=== PATIENT | male | born 1945 | race Caucasian/White ===

== ENCOUNTER → 2017-04-12 | Outpatient (CLI) | payer MEDICARE, BC ==
--- NOTE | 2017-04-12 15:56 | CONS ---
Date/Time of Note Date/Time of Note DATE: 04/12/17 TIME: 15:41 Assessment/Plan Assessment/Plan Additional Assessment/Plan Assessment: This is a 71-year-old male who fell directly onto his right knee informed a prepatellar hematoma. There is no fracture or other degenerative changes on his x-rays. His examination is benign except for the pre-patellar hematoma. The skin is not being threatened and he has minimal symptoms therefore I am recommending not to aspirate the hematoma. Would expect this to improve over the course of the next several weeks he may continue to have some swelling for over a month or 2. Plan: Weight-bear as tolerated Ice and rest for 1 week May return to normal activities and gym after 1 week of rest. For activities using his knee or significant weightbearing activities at the gym he should slowly increase his activity to his baseline over a couple weeks and use pain as his guide. I would like to see him back in 6 weeks for follow-up. No x-rays needed. Consultation Date/Type/Reason Admit Date/Time Date of Consultation: Apr 12, 2017 Reason for Consultation Right knee pain Hx of Present Illness This is a 71 year-old male who presented to clinic with 2 weeks right knee pain after falling off the treadmill at the gym. At the time he was able to return to his regular routine at the gym. He later noticed that he had significant swelling over on the knee. He had minimal pain with ambulation and range of motion. He was only painful to touch over the patella. He describes the pain as dull. Currently his symptoms do not affect his activity level. He saw his PCP Dr. Coy who ordered an ultrasound. Ultrasound was consistent with a hematoma. Patient states the swelling is fairly stable and has not decreased. He denies fevers and chills. He denies numbness and tingling. Denies fevers, chills, shortness of breath, chest pain, numbness, tingling, diarrhea, constipation. Past Medical History Medical History: no pertinent history Past Surgical History No pertinent surgical history Family History Significant Family History: no pertinent family hx Social History The patient has never smoked. Patient consumes approximately 5 alcoholic drinks a week. Patient denies any illicit drug use. Exam/Review of Systems Vital Signs Vitals Weight: 160 pounds Height: 5 foot 10 inches Temperature: 97.9 Heart Rate: 72 Blood Pressure: 131/69 Respiratory Rate: 10 Exam General: Alert, oriented x3. No Acute Distress. Heart: Regular rate and rhythm. Lungs: No respiratory distress. No accessory muscle use. Musculoskeletal: Left Knee This is a well developed male who is alert, oriented times three and in no apparent distress. Skin is intact over the left knee as well as the lower extremity with no abrasions, lacerations, or ulcerations. There is a large fluid collection in the pre- patella bursa. There is no intra-articular knee effusion. There is no erythema , no warmth, minimally tender to palpation. Observation of the patient's gait reveals a non-antalgic gait with No thrust. Frontal plane alignment is neutral. There is no pain on palpation of the joint lines. The patient demonstrates grinding anteriorly with ROM. Range of motion: 0 extension to approximately 140 degrees of flexion. Collateral ligament testing reveals no instability with varus or valgus stress at 0 and 30 degrees of flexion. Negative Carlene's and negative posterior drawer. Neurovascularly intact with 5/5 EHL/tibialis anterior /gastroc. Sensation intact to light touch in a sural, saphenous, deep peroneal, superficial peroneal, medial and lateral plantar nerve distribution. Palpable, symmetric dorsalis pedis and posterior tibial pulses in both lower extremities. Hip examination normal. Imaging Free Text/Dictation The patient received a standard set of films today that were personally reviewed. Imaging included a standing bilateral knee AP, PA flexion, merchant views and a dedicated lateral of the affected knee: There is neutral alignment of the knee. There is no loss of joint space in the compartment(s). There is no osteophyte formation. There is no subchondral sclerosis. There are no subchondral cysts. No degenerative changes There is pre-patellar soft tissue swelling on the right knee MAZIN GONCALVES MD Apr 12, 2017 15:52
--- NOTE | 2017-04-13 13:56 | RADRPT ---
PROCEDURE: XR bilateral Knees. CLINICAL INDICATION: Bilateral knee pain. TECHNIQUE: 5 views of both knees are available for review. COMPARISON: None available FINDINGS: Right side: There is quadriceps insertional enthesopathy. No evidence for fracture. Medial and later al compartments and patellofemoral compartment are intact. There is a moderate joint effusion presen t. The moderate joint effusion can be seen with soft tissue injury such as meniscal tear and/or liga ment injury. Atherosclerotic changes are seen. Left side: No evidence for fracture. There is quadriceps insertional enthesopathy. There is a modera te joint effusion present. The moderate joint effusion can be seen with soft tissue injury such as m eniscal tear and/or ligament injury. Atherosclerotic changes are seen. IMPRESSION: 1. Bilateral moderate joint effusions which can be seen with synovitis and reflect soft tissue inj ury such as a meniscal tear and/or ligament injury. 2. No acute fracture or dislocation is seen. 3. Atherosclerosis. RPTAT: XX .Danilo Whitten MD, MD Date Time Electronically viewed and signed by .Danilo Whitten MD, on 04/13/2017 13:56 .T/
== END | disposition home or self-care (01) ==
LOC: HKI 13:53
PROVIDERS: ATTEND Orthopaedic Surgery Adult Reconstructive Orthopaedic Surgery
DX: S80.01XD Contusion of right knee, subsequent encounter (principal); W19.XXXD Unspecified fall, subsequent encounter
CPT/HCPCS: 73562; G0463

== ENCOUNTER → 2017-05-22 | Outpatient (CLI) | END | disposition home or self-care (01) ==